=== PATIENT | male | born 2000 | race Caucasian/White ===

== ENCOUNTER 2020-11-13 16:10 | Emergency (ER) | payer OTHER ==
--- NOTE | 2020-11-13 18:08 | EDM.PDOC ---
ED HPI GENERAL MEDICAL PROBLEM - General Chief Complaint: General Stated Complaint: MILD ELECTRICAL SHOCK / CAMP CHELO Time Seen by Provider: 11/13/20 17:49 Source of Information: Reports: Patient, EMS Notes Reviewed History Limitations: Reports: No Limitations - History of Present Illness INITIAL COMMENTS - FREE TEXT/NARRATIVE: Patient reports working with [employer] and accidently electrocute the lower anterior portion of his left thigh. He admits to mild tingling and muscle twitching on the specific area which resolved after a couple of minutes. this happened about 2 hours prior to ER visit. He denies having any other symptoms at this time. Onset: Today Duration: Hour(s): (2) Location: Reports: Lower Extremity, Left Improves with: Reports: None - Related Data Allergies Allergy/AdvReac Type Severity Reaction Status Date / Time No Known Allergies Allergy Verified 11/13/20 16:27 Home Meds: Home Meds . [No Known Home Meds] 11/13/20 [History] Past Medical History - Past Health History Medical/Surgical History: Denies Medical/Surgical History Social & Family History - Tobacco Use Tobacco Use Status *Q: Never Tobacco User - Caffeine Use Caffeine Use: Reports: Energy Drinks - Recreational Drug Use Recreational Drug Use: No ED ROS GENERAL - Review of Systems Review Of Systems: Comprehensive ROS is negative, except as noted in HPI. ED EXAM, GENERAL - Physical Exam Exam: See Below Exam Limited By: No Limitations General Appearance: Alert, No Apparent Distress Respiratory/Chest: No Respiratory Distress, Lungs Clear, Normal Breath Sounds, No Accessory Muscle Use, Chest Non-Tender Cardiovascular: Normal Peripheral Pulses, Regular Rate, Rhythm, No Edema, No Gallop, No JVD, No Murmur, No Rub Peripheral Pulses: 3+: Popliteal (L), Popliteal (R), Posterior Tibial (L), Posterior Tibial (R), Dorsalis Pedis (L), Dorsalis Pedis (R) Extremities: Normal Inspection, Normal Range of Motion, Non-Tender, No Pedal Edema, Normal Capillary Refill. No: Joint Swelling, Leg Pain, Limited Range of Motion, Increased Warmth, Redness Neurological: Alert, Oriented, Normal Cognition, Normal Gait Psychiatric: Normal Affect, Normal Mood Skin Exam: Warm, Intact, Normal Color. No: Erythema, Increased Warmth, Wound/Incision Course - Vital Signs Last Recorded V/S: Last Vital Signs Temp 98.3 F 05/14/21 16:23 Pulse 89 11/13/20 16:23 Resp 14 11/13/20 16:23 BP 116/65 11/13/20 16:23 Pulse Ox 100 11/13/20 16:23 - Re-Assessments/Exams Free Text/Narrative Re-Assessment/Exam: Exam findings reviewed with patient. He was asymptomatic during this visit. Departure - Departure Time of Disposition: 18:04 Disposition: Home, Self-Care 01 Condition: Good Clinical Impression: Electric shock Qualifiers: Encounter type: initial encounter Qualified Code(s): T75.4XXA - Electrocution, initial encounter - Discharge Information Forms: ED Department Discharge Additional Instructions: Continue to monitor left thigh as you have not symptoms at this time. Follow up with PCP. Sepsis Event Note (ED) - Evaluation Sepsis Screening Result: No Definite Risk
== END 2020-11-13 18:15 | disposition home or self-care (01) ==
LOC: DL.ED 16:10
DX: T75.4XXA Electrocution, initial encounter (principal)
CPT/HCPCS: 99282; 99283